=== PATIENT | male | born 1955 | race Caucasian/White ===

== ENCOUNTER 2016-07-06 08:59 | Inpatient (IN) | payer BC ==
[2016-07-06] VITALS (9 sets, daily range): BP systolic 105–156; BP diastolic 52–79
[~2016-07-06] VITALS: Ht 165.1 cm; Wt 106.6 kg
[~2016-07-06 08:59] MED LIST: AMLODIPINE BESYL5 MG PO; ASPIR-LOW81 MG PO; ATORVASTATIN CA40 MG PO; FLOMAX0.4 MG PO; LIPITOR40 MG PO; LO-DOSE ASPIRIN81 M2 PO; PRED FORTE100 DROP/5 BOTH EYES; PRED FORTE100 DROP/5 RIGHT EYE; ZESTRIL20 MG PO
[2016-07-06] MEDS ORDERED: HYDROCODON-ACE1 EAC7 PO (15:04)
[2016-07-06 15:59] LABS: METH RESISTANT S AUREUS PCR NEGATIVE (NEGATIVE)
[2016-07-06 16:00] LABS: PROBE CHECK PASS; SPECIMEN PROCESSING CONTROL PASS
[2016-07-07 08:10] VITALS: BP 149/81
[2016-07-07 10:50] VITALS: BP 134/67
== END 2016-07-07 10:48 | disposition home or self-care (01) | DRG 39 ==
LOC: 2SOUTH 08:59 → 4WEST 14:16 → 4EAST 21:50
PROVIDERS: Surgery
DX: I65.21 Occlusion and stenosis of right carotid artery (principal); I10 Essential (primary) hypertension; F17.200 Nicotine dependence, unspecified, uncomplicated; E66.9 Obesity, unspecified; Z68.39 Body mass index [BMI] 39.0-39.9, adult; Z86.73 Personal history of transient ischemic attack (TIA), and cerebral infarction without residual deficits
CPT/HCPCS: 87641; 93005; 94799; C1768; J0131; J0690; J1644; J1650; J2250; J2720; J2795; J3010; J7120